=== PATIENT | male | born 1975 | race Caucasian/White ===

== ENCOUNTER 2024-01-24 20:15 | Emergency (ER) | payer OTHER, SELFPAY ==
[2024-01-24 20:20] VITALS: BP 164/82
[2024-01-24 20:36] LABS: % Basophils 0.5 % (0-2); % Eosinophils 2.2 % (0-6); % Lymphocytes 28.8 % (20.5-51.1); % Monocytes 7.1 % (1.7-9.3); % Neutrophils 61.1 % (42.2-75.2); Hematocrit 39.7 % (39.0-52.0); Hemoglobin 13.8 g/dL (13.0-18.0); Mean Corp Hgb Conc. 34.8 g/dL (33.0-37.0); Mean Corpuscular Hgb 30.4 pg (27.0-31.0); Mean Corpuscular Volume 87.4 fL (80.0-94.0); Mean Platelet Volume 10.9 fL (7.4-10.4); Platelet Count 258 10^3/uL (130-400); Red Blood Cell Count 4.54 10^6/uL (4.70-6.10); Red Cell Dist. Width 13.2 % (11.5-14.5); White Blood Cell Count 6.5 10^3/uL (4.8-10.8)
[2024-01-24 20:37] LABS: % Immature Granulocytes 0.3 % (0-0.5); Absolute Eosinophils 0.1 10^3/uL (0-0.7); Absolute Lymphocytes 1.9 10^3/uL (1.2-3.4); Absolute Monocytes 0.5 10^3/uL (0.1-0.6); Absolute Neutrophils 3.9 10^3/uL (1.4-6.5); Nucleated Red Blood Cells % 0 % (-)
[2024-01-24 20:56] LABS: ALT (SGPT) 50 U/L (0-50); AST (SGOT) 32 U/L (17-59); Albumin 4.6 g/dl (3.5-5.0); Alkaline Phosphatase 80 U/L (38-126); Blood Urea Nitrogen 17 mg/dl (9-20); Calcium 9.9 mg/dl (8.4-10.2); Carbon Dioxide 23 mmol/L (22-30); Chloride 103 mmol/L (98-107); Glucose 147 mg/dl (70-99); Potassium 3.7 mmol/L (3.5-5.1); Sodium 137 mmol/L (135-145); Total Bilirubin 0.8 mg/dl (0.2-1.3); eGFR > 60.00
[2024-01-24 21:01] LABS: Troponin I < 0.012 ng/ml
[2024-01-24 21:05] VITALS: BP 114/58
[2024-01-24 22:00] VITALS: BP 142/62
--- NOTE | 2024-01-24 22:19 | ED.GENMED ---
History of Present Illness
General
Chief Complaint: Chest Pain
Source: patient, records and spouse
Exam Limitations: none
Time Seen by Provider: 01/24/24 21:41
Nursing documentation reviewed up to this point in time: agreed with
Travel History
Have you had any contact with someone who has COVID-19?: No
Do you have any symptoms of coronavirus? Fever > 100 degrees, chills, cough, shortness of breath, sore throat, loss of taste or smell, muscle aches, or headache?: No
History of Present Illness
History of Present Illness:
Patient is a 48-year-old male who presents with 2 days of chest pain. Patient states he woke up 2 days ago and his day progressed he developed pain throughout his anterior chest. Patient denies any triggers. Patient states the pain gets worse
when he takes a deep breath. Patient had some exertional shortness of breath this evening. Patient denies exertional chest pain or dyspnea at work. Patient works as a landscaping and heart skipping. Patient denies any palpitations. Patient
denies coughing. Patient denies fever, chills, nasal congestion or sore throat. Patient denies any GI or symptoms. Patient denies any travel history or history of PE or DVT. Patient has chronic pain in his legs for more. Patient states
tonight plays breathing he gets the chest pain and it radiates into his jaw and neck. Patient does not smoke. Patient has no history of hypertension or diabetes but does have elevated cholesterol and a positive family history for coronary artery
disease. Patient feels better at this time. Patient states laying down and sleeping helped him this evening.
Past History
Past History
ED Past Medical History: Hypercholesterolemia; Negative HTN, IDDM or NIDDM
Social History
Tobacco: Non-smoker
Review of Systems
Review of Systems
All Other Systems: ROS reviewed and negative except as documented in HPI and ROS
Constitutional: Reports no symptoms
EENT: Reports no symptoms
Respiratory: Reports trouble breathing (With exertion tonight); Denies cough
Cardiac: Reports chest pain; Denies diaphoresis, palpitations or syncope
ABD/GI: Reports no symptoms
: Reports no symptoms
Musculoskeletal: Reports no symptoms
Skin: Reports no symptoms
Neurological: Reports no symptoms
Hematologic/Lymphatic: Reports no symptoms
Phy Exam
Physical Exam
Physical Exam:
Physical Exam
General: mild distress, alert and appropriate, morbidly obese, well hydrated
HENT: Normocephalic, supple with no lymphadenopathy, no thyromegaly
Eyes: Clear sclera, conjuctiva without injection
Heart: Regular rhythm and rate. No S3, S4. No murmur. No NVD, bruit
Lungs: No respiratory distress, no stridor, lung sounds clear and equal bilaterally, chest wall symmetrical and nontender
Abdomen: Soft, nontender, no organomegaly, no CVA tenderness, BS good
Neuro: Alert and oriented x 3, CN II - XII intact, no motor focality, no cerebellar dysfunction
Skin: no rash
Psychiatric: well kept. interactive and cooperative
Extremities: No edema, cyanosis, tenderness, Good and equal peripheral pulses.
Scores
Heart Score for Chest Pain Patients
STEMI patient?: No
History: Slightly or Non-Suspicious
ECG: Normal
Age: >45 - <65 years
Risk Factors: 1 or 2 Risk Factors
Troponin: </= Normal Limit
Heart Score for Chest Pain Patients: 2
Heart Score Risk: 2.5% MACE over next 6 weeks
Course
Orders/Labs/Results
Orders:
Orders
01/24/24 20:18
Electrocardiogram (*1) Urgent
Reason for Study: Chest Pain
EKG- Treatment ONCE
01/24/24 20:27
Complete Blood Count/With Diff Urgent
Comprehensive Metabolic Panel Urgent
Troponin I Urgent
01/24/24 22:16
D-Dimer Urgent
Mag Hydrox/Al Hydrox/Simeth [Maalox] 30 ml Phenobarb/Hyoscy/Atropine/Scop [] 10 ml Viscous Lidocaine 2% [Xylocaine Viscous Cup] 10 ml PO NOW
Pantoprazole [Protonix IV] 80 mg IV NOW STA
Sucralfate [Carafate] 1 gram PO NOW STA
CR Chest - 2 Views Urgent
Comment:
Reason For Exam: chest pain
01/24/24 22:23
Mag Hydrox/Al Hydrox/Simeth [Maalox] 30 ml .ROUTE .STK-MED ONE
Phenobarb/Hyoscy/Atropine/Scop [] 10 ml .ROUTE .STK-MED ONE
Viscous Lidocaine 2% [Xylocaine Viscous Cup] 15 ml .ROUTE .STK-MED ONE
Abnormal Lab Results
01/24/24
20:27
RBC 4.54 L 10^6/uL
(4.70-6.10)
MPV 10.9 H fL
(7.4-10.4)
Glucose 147 H mg/dl
(70-99)
01/24/24 20:27
01/24/24 20:27
Vital Signs
Initial and Last Documented VS:
Initial Vital Signs
Temp Pulse Resp BP Pulse Ox
98.3 F 84 18 164/82 98
01/24/24 20:20 01/24/24 20:20 01/24/24 20:20 01/24/24 20:20 01/24/24 20:20
Last Documented Vital Signs
Temp Pulse Resp BP Pulse Ox
98.3 F 74 18 114/58 98
01/24/24 20:20 01/24/24 21:15 01/24/24 21:15 01/24/24 21:05 01/24/24 21:15
*Pulse Oximetry
Patient hypoxic: no
*EKG
Interpreted by ED Provider?: Yes
EKG Intrepretation Date: 01/24/24
EKG Intrepretation Time: 22:23
Interpretation: normal
Comparison EKG: no comparison EKG present
Heart Rate: 81
Rate: normal
Rhythm: sinus
Empire: normal axis
Interval: normal interval
QRS Pattern: normal QRS
Ischemia: no ischemia
*Pie Bottomer Interpretation
Rate: normal
Interpretation: normal
Heart Rate: 81
Rhythm: sinus
*Critical Care Note
Total Time (30-74mins, 75-104mins- exclusive of procedures): Not Applicable
Update Note
Update Note:
Patient is feeling somewhat better. Do not believe this is cardiac but given the patient's risk factors will refer to cardiology. Patient will be started on medications for reflux.
ED Attending Note
-
Portions of this chart may have been created with voice recognition software.� Occasional wrong word or��sound alike� substitutions may have occurred due to the inherent limitations of voice recognition software.
Discharge Plan
Departure
Patient Disposition: Home (Routine Discharge)
Date of Disposition: 01/24/24
Time of Disposition: 23:57
Patient with high blood pressure during this ER visit?: Yes
Condition: Fair
Covid-19: Not Applicable
Discharge Problem:
Chest pain, GERD (gastroesophageal reflux disease)
Instructions: Acid Reflux and GERD in Adults (DC), Chest Pain DCA Follow Up, BLOOD PRESSURE
Prescriptions:
New
sucralfate [Carafate] 1 gram tablet
1 g PO QID Qty: 60 0RF
pantoprazole [Protonix] 40 mg tablet,delayed release (DR/EC)
40 mg PO BID Qty: 30 0RF
No Action
metronidazole 500 MG tablet
500 mg PO TID
dicyclomine 20 MG tablet
20 mg PO TID
Omeprazole
20 mg PO DAILY
ondansetron 4 MG tablet,disintegrating
4 mg PO TIDPRN PRN (Reason: nausea) Qty: 12 0RF
Referrals:
UNKNOWN - PT DOES,NOT KNOW [Unknown Provider] -
Activity Restrictions/Additional Instructions:
Any increasing pain or shortness of breath please return
Interventions
Interventions:
*Risk Screen - Suicide Last Done: 01/24/24 20:20
*General Assessment Last Done: 01/24/24 20:20
*Neglect/Abuse Screening Last Done: 01/24/24 20:20
ED- Fall Risk Assessment Last Done: 01/24/24 21:13
*ED COVID-19 Vaccine History Last Done: 01/24/24 20:20
ED- Cardiac Assessment Last Done: 01/24/24 21:13
Discharge Date and Time
Print Language: SUDANESE
[2024-01-24] MEDS: PROTONIX IV 80 MG IV (22:32)
[2024-01-24] MEDS: MAALOX 50 PO (22:33)
[2024-01-24] MEDS: CARAFATE 1 GRAM PO (22:33)
== END 2024-01-25 00:05 | disposition home or self-care (01) ==
LOC: EMR 20:15
PROVIDERS: EMERGENCY PHYSICIAN Emergency Medicine; FAMILY PHYSICIAN Family Medicine
DX: R07.89 Other chest pain (principal); K21.9 Gastro-esophageal reflux disease without esophagitis; E78.00 Pure hypercholesterolemia, unspecified; G89.29 Other chronic pain
CPT/HCPCS: 99283; 96374; 71046; 80053; 84484; 85025; 85379; 93005